=== PATIENT | male | born 1990 | race Caucasian/White ===

== ENCOUNTER → 2020-03-26 | Outpatient (CLI) | payer OTHER ==
[2020-03-26 08:30] LABS: PV NONMOTILE COUNT1 0; PV NONMOTILE COUNT2 0; PV SEMEN COLOR STRAW; PV SEMEN LIQUEFACTION 15 MINUTES (<61); PV SEMEN PH 8.2 (>7.1); PV SEMEN VISCOSITY NORMAL (NORMAL); PV VOLUME 5.4 mL (>1.4)
[2020-03-26 08:31] LABS: PV ROUND CELL CONCENTRATION 0.2 X10^6/mL (<5.1); PV ROUND CELL COUNT1 2; PV ROUND CELL COUNT2 1
[2020-03-26 09:26] LABS: PV SPERM CONCENTRATION < 0.1 X10^6/mL (0.0); PV SPERM MOTILITY 0 % (0)
== END ==
LOC: OD 07:47
PROVIDERS: ATTEND Urology
DX: Z30.8 Encounter for other contraceptive management (principal)
CPT/HCPCS: 89321